=== PATIENT | female | born 1940 | race Caucasian/White ===

== ENCOUNTER → 2017-02-13 | Outpatient (CLI) | payer OTHER, MEDICARE | LOC: CIMAGING 08:04 | DX: Z12.31 Encounter for screening mammogram for malignant neoplasm of breast (principal) | CPT/HCPCS: G0202 ==

== ENCOUNTER → 2018-02-15 | Outpatient (CLI) | payer OTHER, MEDICARE | LOC: CIMAGING 09:29 | PROVIDERS: ATTEND Internal Medicine | DX: Z12.31 Encounter for screening mammogram for malignant neoplasm of breast (principal); Z80.3 Family history of malignant neoplasm of breast ==

== ENCOUNTER → 2018-02-16 | Outpatient (CLI) | payer OTHER, MEDICARE | LOC: FIMAGING 08:53 | PROVIDERS: ATTEND Internal Medicine | DX: R13.14 Dysphagia, pharyngoesophageal phase (principal); G47.33 Obstructive sleep apnea (adult) (pediatric); K21.9 Gastro-esophageal reflux disease without esophagitis; K44.9 Diaphragmatic hernia without obstruction or gangrene; J39.2 Other diseases of pharynx; K22.2 Esophageal obstruction; Z80.0 Family history of malignant neoplasm of digestive organs ==

== ENCOUNTER → 2018-04-09 | Outpatient (CLI) | payer OTHER, MEDICARE | LOC: FIMAGING 09:18 | PROVIDERS: ATTEND Orthopaedic Surgery | DX: Z01.818 Encounter for other preprocedural examination (principal); M17.11 Unilateral primary osteoarthritis, right knee; M25.461 Effusion, right knee; M16.11 Unilateral primary osteoarthritis, right hip; M19.071 Primary osteoarthritis, right ankle and foot ==

== ENCOUNTER 2018-04-30 07:15 | Inpatient (IN) | payer OTHER, MEDICARE ==
[2018-05-07] MEDS ORDERED: DEXAMETHASONE 4 MG/ML VIAL IVP ONE (05:55)
[2018-05-07] MEDS ORDERED: LR 1,000 ML IV ONE (05:55)
[2018-05-07] MEDS ORDERED: ACETAMINOPHEN 325 MG TAB PO ONE (05:55)
[2018-05-07] MEDS ORDERED: FAMOTIDINE 20 MG TAB PO ONE (05:55)
[2018-05-07] MEDS ORDERED: ceFAZolin 2 GM/DEXTROSE 100 ML IV ONE (05:55)
[2018-05-07] MEDS ORDERED: LIDOCAINE 1% 2 ML INJ ID PRN (05:55)
[2018-05-07] MEDS ORDERED: ROPIVACAINE 0.2% 80 MG, EPINEPHrine 0.2 MG, KETOROLAC TROMETHAMINE 30 MG in SYRINGE 0 ML IU ONE (06:00)
[2018-05-07] MEDS ORDERED: TRANEXAMIC ACID 3,000 MG in NS (SYRINGE) 50 ML IRR ONE (06:00)
--- NOTE | 2018-05-07 06:19 | PDHPUP ---
History & Physical Update H&P update statement: This history and physical update is based on an assessment of the patient which was completed after admission or registration (within 24 hours), but prior to the surgery/procedure. H&P update: H&P reviewed & patient examined, no change in patient's condition since H&P completed
[2018-05-07] MEDS ORDERED: VANCOMYCIN 1 GM VIAL ONE (06:38)
[2018-05-07] MEDS ORDERED: TRANEXAMIC ACID 3,000 MG/50 ML BAG IRR ONE (06:38)
[2018-05-07] MEDS ORDERED: MIDAZOLAM 2 MG/2 ML VIAL ONE (07:06)
[2018-05-07] MEDS ORDERED: PROPOFOL 200 MG/20 ML VIAL ONE ×2 (07:11→08:33)
[2018-05-07] MEDS ORDERED: MIDAZOLAM 2 MG/2 ML VIAL IVP ONE (07:14)
--- NOTE | 2018-05-07 07:14 | PDANEPAE ---
ANE Past Medical History - Cardiovascular History Hx Hypertension: No Hx Arrhythmias: Yes Hx Coronary Artery / Peripheral Vascular Disease: No Hx CHF / Valvular Disease: No Cardiovascular History Comment: Afib x1 with sleep study. - Pulmonary History Hx COPD: No Hx Asthma/Reactive Airway Disease: No Hx Recent Upper Respiratory Infection: No Hx Oxygen in Use at Home: No Hx Sleep Apnea: Yes Sleep Apnea Screening Result - Last Documented: Positive Pulmonary History Comment: sleep apnea-CPAP. - Neurologic History Hx Cerebrovascular Accident: No Hx Seizures: No Hx Dementia: No - Endocrine History Hx Diabetes: No - Renal History Hx Renal Disorders: No - Liver History Hx Hepatic Disorders: No - Neurological & Psychiatric Hx Hx Neurological and Psychiatric Disorders: No - Cancer History Hx Cancer: No - Congenital Disorder History Hx Congenital Disorders: No - GI History Hx Gastrointestinal Disorders: No Gastrointestinal History Comment: FREQUENT CONSTIPATION ALTERNATING WITH DIARRHEA - Other Health History Other Health History: Joint arthritis. - Chronic Pain History Chronic Pain: Yes (joints) - Surgical History Prior Surgeries: 2006-L knee scope. 1999-bilateral breast BXx4. 1969-GB surg. Tonsils as child. ANE Review of Systems Review of Systems: - Exercise capacity METS (RN): 4 METS ANE Patient History - Allergies Allergies/Adverse Reactions: chlorhexidine [From Hibiclens] Allergy (Verified 04/15/18 12:52) Rash hydrocodone [From Vicodin] Allergy (Verified 04/15/18 12:52) GI ISSUES meloxicam [From Mobic] Allergy (Verified 04/15/18 12:52) GI ISSUES oxycodone Allergy (Verified 04/15/18 12:52) GI ISSUES tramadol Allergy (Verified 04/15/18 12:52) GI ISSUES - Home Medications Home Medications: Aspirin [Aspirin 81mg (*)] 81 mg PO DAILY18 04/13/18 [Last Taken 04/30/18] Naproxen 500 mg PO BID 04/13/18 [Last Taken 04/25/18] [place]-3 Fatty Acids [Fish Oil 1000 mg (*)] 1,000 mg PO HS 04/13/18 [Last Taken 04/30/18] - NPO status NPO Since - Liquids (Date): 05/06/18 NPO Since - Liquids (Time): 21:00 NPO Since - Solids (Date): 05/06/18 NPO Since - Solids (Time): 19:00 - Smoking Hx Smoking Status: Never smoked - Family Anes Hx Family Hx Anesthesia Complications: NONE ANE Labs/Vital Signs - Vital Signs Blood Pressure: 117/70 Heart Rate: 58 Respiratory Rate: 16 O2 Sat (%): 98 Height: 157.48 cm Weight: 50.349 kg ANE Physical Exam - Airway Neck exam: FROM Mallampati Score: Class 1 Mouth exam: normal dental/mouth exam - Pulmonary Pulmonary: no respiratory distress - Cardiovascular Cardiovascular: regular rate and rhythym ANE Anesthesia Plan Anesthesia Plan: GA w LMA, spinal
[2018-05-07] MEDS ORDERED: diphenhydrAMINE 25 MG CAP PO PRN (08:33)
[2018-05-07] MEDS ORDERED: ONDANSETRON DISINTEGRATING 4 MG TAB PO PRN (08:33)
[2018-05-07] MEDS ORDERED: PROMETHAZINE HCL 25 MG SUPPR PR PRN (08:33)
[2018-05-07] MEDS ORDERED: ONDANSETRON 4 MG/2 ML VIAL IVP PRN ×2 (08:33→09:45)
[2018-05-07] MEDS ORDERED: METOCLOPRAMIDE 10 MG/2 ML VIAL IVP PRN (08:33)
[2018-05-07] MEDS ORDERED: PROMETHAZINE HCL 25 MG/ML INJ IVP PRN (08:33)
[2018-05-07] MEDS ORDERED: MAGNESIUM HYDROXIDE 30 ML UDCUP PO PRN (08:33)
[2018-05-07] MEDS ORDERED: BISACODYL 10 MG SUPP PR PRN (08:33)
[2018-05-07] MEDS ORDERED: TEMAZEPAM 15 MG CAP PO PRN (08:33)
[2018-05-07] MEDS ORDERED: LACTULOSE 20 GM/30 ML UDCUP PO PRN (08:33)
[2018-05-07] MEDS ORDERED: POLYETHYLENE GLYCOL 3350 17 GM PKT PO PRN (08:33)
[2018-05-07] MEDS ORDERED: DIPHENOXYLATE/ATROPINE LOMOTIL 1 TAB PO PRN (08:33)
[2018-05-07] MEDS ORDERED: ROPIVACAINE HCL 150 MG/30 ML INJ ONE (08:35)
--- NOTE | 2018-05-07 08:36 | POSTOPPROG ---
Post Op Note Date of Operation: 05/07/18 Surgeon: Roger Ellsworth Board Member: willow ellsworth Anesthesiologist: dr. andres Anesthesia: Spinal, Other (Specify) (adductor canal block) Pre-op Diagnosis: right knee OA Post-op Diagnosis: same Indication: right knee pain Procedure: R TKA robot assisted, computer arnulfo, sensor assisted Findings: severe knee OA Inf/Abcess present in the surg proc area at time of surgery?: No EBL: 50-100
[2018-05-07] MEDS ORDERED: LR 1,000 ML IV SCH (09:00)
--- NOTE | 2018-05-07 09:01 | POSTANESTH ---
Post Anesthetic Evaluation Cardiovascular Status: Normal, Stable Respiratory Status: Normal, Stable Level of Consciousness/Mental Status: Can Participate in Eval Pain Control: Adequate, Prn Tx Ordered Nausea/Vomiting Control: Adequate, Prn Tx Ordered Complications Possibly Related to Anesthesia: None Noted
[2018-05-07] MEDS ORDERED: NALOXONE HCL 0.4 MG/ML INJ IVP PRN (09:45)
[2018-05-07] MEDS ORDERED: fentaNYL 100 MCG/2 ML INJ ONE (09:55)
[2018-05-07] MEDS: fentaNYL 100 MCG/2 ML INJ IVP PRN ×2 (09:56→10:08)
[2018-05-07] MEDS: HYDROmorphONE/DILAUDID 2 MG TAB PO PRN ×3 (11:20→21:08)
[2018-05-07] MEDS: ACETAMINOPHEN 325 MG TAB PO SCH ×3 (12:01→23:36)
[2018-05-07] MEDS: CYCLOBENZAPRINE 10 MG TAB PO PRN ×2 (12:02→21:08)
[2018-05-07] MEDS: SENNOSIDES/DOCUSATE SODIUM TAB PO SCH ×2 (13:56→21:08)
--- NOTE | 2018-05-07 14:48 | ASMTCMCOM ---
CM Note CM Note Notes: Pt s/p R TKA. Pt had [facility] PT last TKA and requests again; Saloni at [facility] alerted. PT/OT evals pending. Pt has a lot of friend support local but her recently had kidney cancer surgery and is still recovering. CM will follow. Date Signed: 05/07/2018 02:47 PM Electronically Signed By:CONCEPCION Aguilera
[2018-05-07] MEDS: ceFAZolin 2 GM/DEXTROSE 100 ML IV SCH ×2 (15:54→23:36)
[2018-05-07] MEDS: FAMOTIDINE 20 MG TAB PO SCH (21:08)
[2018-05-07] MEDS: ASPIRIN 81 MG CHEWABLE TAB PO SCH (21:08)
[2018-05-08] MEDS: ACETAMINOPHEN 325 MG TAB PO SCH ×3 (06:45→18:12)
[2018-05-08] MEDS: HYDROmorphONE/DILAUDID 2 MG TAB PO PRN ×3 (06:45→18:12)
[2018-05-08] MEDS: SENNOSIDES/DOCUSATE SODIUM TAB PO SCH ×2 (08:23→20:47)
[2018-05-08] MEDS: FAMOTIDINE 20 MG TAB PO SCH ×2 (08:23→20:47)
[2018-05-08] MEDS: ASPIRIN 81 MG CHEWABLE TAB PO SCH ×2 (08:23→20:47)
[2018-05-08] MEDS: CYCLOBENZAPRINE 10 MG TAB PO PRN ×2 (09:44→20:47)
--- NOTE | 2018-05-08 10:51 | SOAPPROG ---
SOAP Progress Note Assessment/Plan: Assessment: patient is doing well POD 1 s/p R TKA pain is well controlled on oral pain meds, increasing as expected postop anemia: level expected initially postop VTE ppx: recommend 81 mg BID for 4 weeks d/c planning: d/c to home today vs tomorrow pending release from PT and OT. patient had Home health PT postop L TKA several years ago and would benefit from home health PT postop. Plan: 05/08/18 10:49 Subjective: Katalina is doing well, denies SOB, chest pain and n/V Objective: Vital Signs Temp Pulse Resp BP Pulse Ox 36.4 C 55 L 16 116/64 93 05/08/18 07:49 05/08/18 07:49 05/08/18 07:49 05/08/18 07:49 05/08/18 08:00 Laboratory Results 05/08/18 04:20 05/08/18 04:20 05/07/18 05/08/18 05/09/18 05:59 05:59 05:59 Intake Total 2150 Output Total 2900 Balance -750 RLE: incision dressing is clean and dry, NVI, +pf/df ICD10 Worksheet Patient Problems: Problems Problem Status Onset Primary localized osteoarthritis of right knee Acute Primary osteoarthritis of left knee Acute
--- NOTE | 2018-05-08 10:51 | PDFACE2FAC ---
Face to Face Encounter 1. I certify that this patient is under my care and that I, or a nurse practitioner or physician's senior court office assistant working with me, had a eulq-dg-lhvl encounter that meets the physician lkef-vs-znvn encounter requirements with this patient on 05/08/18. 2. I certify that based on my findings, the following services are medically necessary home health services: [X Nursing] [X Physical Therapy] [Speech-Language Pathology] 3. The medical condition and clinical findings that support the need for specialized skills, knowledge and judgement of the above services are: [s/p R TKA must use FWW postop, ] 4. I certify this patient is homebound* because [the patient's condition restricts their ability to leave their home except with the assistance of another individual or the aid of a supportive device.] on narcotic pain meds and must use FWW postop I certify that this patient is confined to his/her home and needs intermittent correction care, physical and/or speech therapy. This patient is under my care and I have authorized home health services. * Homebound is defined by Medicare as follows: absences from home require considerable and tacking effort and or for medical reasons or zoroastrian services or are infrequent or of short duration when for other reasons*.
--- NOTE | 2018-05-08 10:52 | PDIAF ---
- Diagnosis Diagnosis: s/p R TKA Code Status: Full Code - Medication Management Discharge Medications: Medications to Continue on Transfer [place]-3 Fatty Acids [Fish Oil 1000 mg (*)] 1,000 mg PO HS 04/13/18 [Last Taken 04/30/18] Acetaminophen [Tylenol 325mg (*)] 650 mg PO Q6HRS tab 05/08/18 [Last Taken Unknown] Aspirin [Aspirin 81mg (*)] 81 mg PO BID tab.chew 05/08/18 [Last Taken Unknown] HYDROmorphone HCL [Dilaudid 2 mg (*)] 2 - 4 mg PO Q4HRS PRN tab 05/08/18 [Last Taken Unknown] Polyethylene Glycol 3350 [Miralax 17 gm (*)] 17 gm PO DAILY PRN pkt 05/08/18 [ Last Taken Unknown] Sennosides/Docusate Sodium [Senokot-S] 1 - 2 tab PO BID tab 05/08/18 [Last Taken Unknown] celeCOXIB [Celebrex (*)] 200 mg PO DAILY cap 05/08/18 [Last Taken Unknown] Discharge Medications: Refer to the Discharge Home Medication list for PRN reason. - Orders Services needed: Home Care, Physical Therapy Home Care Face to Face: I certify that this patient was under my care and that I had the required tmxh-jf-chmm encounter meeting the encounter requirements on the discharge day. My findings support the fact that the patient is homebound as defined in Home Care Face to Face Continued: CMS Chapter 7 Medicare Benefits Manual 30.1.1 , The condition of the patient is such that there exists a normal inability to leave home and consequently, leaving home would require a considerable and taxing effort. Isolation Type: None Diet Recommendation: no restrictions on diet Diet Texture: Regular Texture Diet Additional Instructions: Joint Protocol-Knee Replacement Follow up with Dr. Guevara office as scheduled You received an adductor canal nerve block in your surgical leg. This provides pain relief for 24-36 hours after surgery. As the numbness to your anterior bentley resolves, the pain will worsen. We recommend starting narcotic pain meds, even low dose ( a pill) prior to the block wearing off. After surgery instructions: Take Aspirin 81mg by mouth twice daily for 4 weeks (helps to prevent blood clots ) Wear thigh high RUBI hose on both legs during the daytime for 2 weeks (helps to prevent blood clots and decrease swelling in the surgical leg). It is ok to remove RUBI hose at night time to give your legs a break. It is common for swelling and bruising to occur in the entire surgical leg even extending to the foot, if concerned call Dr. Ybarra office [phone] Elevate the surgical leg with the ankle above the hip several times a day. Ideally anytime you are resting throughout the day. Attempt to keep the knee straight while elevating by placing pillows under the ankle instead of the knee to elevate. This may be painful, so please do as much as tolerated. This will help you achieve full knee extension. Use a walker for 7-14 days Wear an joseph wrap on the knee for 3-4 days after surgery, then it is no longer needed Do exercises in the book 2-3 times a day Ice at least 3-5 times a day for 30 minutes each time, if not more often. We also recommend using the ice machine before falling asleep to help with pain If you have further questions that are not addressed here, please look at the information packet handed to you at the preop appointment. Most will be answered on the FAQs, after surgery instructions and incision care pages. *IF YOU HAVE A LIFE THREATENING EMERGENCY, CALL 911. FOR NON-LIFE THREATENING ISSUES, PLEASE CALL DR. GUEVARA OFFICE FIRST. A PHYSICIAN IS MERCURY CELL CLEANER 18/05. Incision/Dressing Care: You may shower tomorrow, you do not have to cover your incision dressing as it should be waterproof. Please do not immerse in water, but water running down it a shower should be ok. Keep the incision (cast) dressing clean and dry. If the incision dressing gets soiled or wet underneath, change dressing to the dressing given to you by the hospital. (cast dressing will turn black if drainage occurs) Remove incision dressing (cast one) two weeks after surgery. Leave steri strips alone. They will fall off on their own. Do not have anyone else remove the incision dressing prior to the stated recommendation (2 weeks after surgery). If there are incision concerns, contact Dr. Ybarra office. (Natalia or Dr. Condon may remove earlier if concerns arise) If incision site (cast dressing) has drainage, call Dr. Ybarra office, . Natalia and Dr. Condon may ask you to come into the office for further evaluation - Follow Up Care Current Providers and Referrals: Jose Martinez MD [Primary Care Provider] - Natalia Condon PA [Physician Binder Folder Operator] - 05/27/18 9:45 am
--- NOTE | 2018-05-08 11:49 | ASMTLACE ---
LACE Length of stay for Answers: Less than 1 day current admission Acuity / Level of Answers: No Care: Did the patient have an inpatient admission? Comorbidities - select Answers: Other Notes: arthritis, osteoporosis , o all that apply steopenia, sleep apnea # of Emergency department Answers: 0 visits in the last 6 months Score: 1 Date Signed: 05/08/2018 11:48 AM Electronically Signed By:Nissa Galan
--- NOTE | 2018-05-08 11:51 | ASMTDCNOTE ---
Case Management Discharge Discharge Order Complete? Answers: Yes Patient to Obtain Answers: Independently Medications Transportation Arranged Answers: Family/Friends Discharge Comments Notes: Pt will be receiving PT through [facility]. [facility] notified that Pt is D/Cing today. No other CM needs identified. Date Signed: 05/08/2018 11:50 AM Electronically Signed By:Nissa Galan
--- NOTE | 2018-05-08 13:24 | ASDISCHSUM ---
Discharge Information Plan Status:Home with Home Health Medically Cleared to Leave:05/09/2018 Discharge Date:05/09/2018 04:18 PM CM D/C Disposition:Home Health Service ADT D/C Disposition:Home Health Service Projected Discharge Date:05/09/2018 03:00 PM Transportation at D/C:Family Discharge Delay Reason: Follow-Up Date:05/09/2018 03:00 PM Discharge Slot:2 - 12:01 pm - 18:00 pm Final Diagnosis:R TKA Placement Information Referral Type:*Home Health Care Services Referral ID:[id number] Provider Name:[facility] Address 1:[address] [address] Address 2: City:[place] Selection Factors: State:[place] Referral Type:*Home Health Care Services Referral ID:[id number] Provider Name: Address 1: Phone Number: Address 2: Fax Number: City: Selection Factors: State: Patient Contact Information Contact Name:JAMESAHEINZE Relationship: Address:[address] City:[facility] Phone: State/Zip Code:[place] [address] Email: Financial Information Financial Class:Medicare Primary Plan Desc:MEDICARE OUTPATIENT Primary Plan Number:[id number] Secondary Plan Desc:[place]HELSEA/[employer]EDDIE SUPPLEMENT Secondary Plan Number:[id number] Assessment Information LACE LACE Length of stay for Answers: Less than 1 day current admission Acuity / Level of Answers: No Care: Did the patient have an inpatient admission? Comorbidities - select Answers: Other Notes: arthritis, osteoporosis , o all that apply steopenia, sleep apnea # of Emergency department Answers: 0 visits in the last 6 months Score: 1 Date Signed: 05/08/2018 11:48 AM Electronically Signed By:Nissa Galan [facility] CM Progress Note CM Note CM Note Notes: Pt s/p R TKA. Pt had [facility] PT last TKA and requests again; Saloni at [facility] alerted. PT/OT evals pending. Pt has a lot of friend support local but her recently had kidney cancer surgery and is still recovering. CM will follow. Date Signed: 05/07/2018 02:47 PM Electronically Signed By:CONCEPCION Aguilera Case Management Discharge Plan Note Case Management Discharge Discharge Order Complete? Answers: Yes Patient to Obtain Answers: Independently Medications Transportation Arranged Answers: Family/Friends Discharge Comments Notes: Pt will be receiving PT through [facility]. [facility] notified that Pt is D/Cing today. No other CM needs identified. Date Signed: 05/08/2018 11:50 AM Electronically Signed By:Nissa Galan [facility] CM Progress Note CM Note CM Note Notes: Spoke with BRYANNA Sosa at [facility], confirmed she has received all needed orders/paperwork. [facility] will see patient on Thursday, 05/09. Date Signed: 05/08/2018 02:08 PM Electronically Signed By:Denise Clay RN Intervention Information
--- NOTE | 2018-05-08 14:09 | ASMTCMCOM ---
CM Note CM Note Notes: Spoke with BRYANNA Sosa at [facility], confirmed she has received all needed orders/paperwork. [facility] will see patient on Thursday, 05/09. Date Signed: 05/08/2018 02:08 PM Electronically Signed By:Denise Clay RN
--- NOTE | 2018-05-08 17:02 | GOP ---
[f rep st] OPERATIVE REPORT DATE OF OPERATION: 05/07/2018 SURGEON: Jos Condon MD HEAT CURER: Natalia Condon PA-C ANESTHESIA: Spinal. PREOPERATIVE DIAGNOSIS: Right knee osteoarthritis. POSTOPERATIVE DIAGNOSIS: Right knee osteoarthritis. PROCEDURE PERFORMED: Right total knee replacement with computer navigation, robotic assist. FINDINGS: ESTIMATED BLOOD LOSS: 30 mL. INDICATIONS: The patient is a 77-year-old female with severe and progressive pain and deformity of the right knee unresponsive to conservative care. The risks and benefits of surgical intervention were explained in detail. DESCRIPTION OF PROCEDURE: The patient was brought to the operative room and placed on the table in the supine position. Spinal anesthesia was induced without difficulty. A pneumatic tourniquet was applied about the right proximal thigh, and the leg was prepped and draped in a sterile fashion. The leg paz was applied. After exsanguination by elevation the tourniquet was inflated to 250 mmHg. Incision was made anterior medial from the tibial tuberosity to a point 2 cm proximal to the superior pole of the patella. Medial parapatellar arthrotomy was carried out from the superior pole of the patella and posteriorly in line with the fibers of the Type II VMO. The medial collateral ligament was elevated and the infrapatellar fat pad was resected. The patella was everted and the articular surface was excised. A 35 mm patellar button was placed. Attention was turned first to the distal aspect of the femur. After exposure of the femur, 2 half pins were placed for fixation of the femoral array. In a similar fashion, 2 pins were placed anteromedial on the tibia for fixation of the tibial array. External land marking and registration of the hip center were performed without difficulty. Internal femoral and tibial registration were carried out without difficulty and the femoral and tibial checkpoints were placed and verified for accuracy. Attention was turned to the femur. The foot print for the size 3 femoral component was cut with the saw using the [employer] robotic system and verified for accuracy against the CT based plan. In a similar fashion, the saw was used to cut the footprint for the size 4 tibial component using the [employer] Reality system and verified for accuracy against the CT based plan. The tibial articular surface was excised without difficulty, followed by the intercondylar box cut. The knee was extended and the remnants of the medial and lateral meniscus were excised. The posterior capsule was injected with ropivacaine, epinephrine and Toradol. A size 6 tibial tray was positioned. Trial reduction was then carried out. There was excellent range of motion, alignment, and stability using the 4 x 9 mm polyethylene. Verwrenchguys mobilee Avimotosor smart trial was used to confirm joint balance and rotation. All trials were then removed. The joint was thoroughly irrigated and carefully dried. The Press-Fit components were implanted. The permanent 4 x 9 mm polyethylene was placed without difficulty. The tourniquet was deflated and all bleeders were coagulated. The wound was thoroughly irrigated and closed using interrupted sutures of 2-0 Vicryl for the joint capsule. The subcu was closed with 3-0 Vicryl and the skin with 4-0 Monocryl. Dermabond and Steri-Strips were applied followed by a compressive dressing. The patient was then moved from the operating room to the recovery room in good condition, having tolerated the procedure well. PATHOLOGY: Severe medial and patellofemoral osteoarthritis. /[id number]/MODL MTDD
[2018-05-09] MEDS: ACETAMINOPHEN 325 MG TAB PO SCH ×3 (01:01→13:37)
[2018-05-09] MEDS: HYDROmorphONE/DILAUDID 2 MG TAB PO PRN ×3 (01:01→13:26)
[2018-05-09 07:51] VITALS: BP 117/68
[2018-05-09] MEDS: ASPIRIN 81 MG CHEWABLE TAB PO SCH (08:03)
[2018-05-09] MEDS: FAMOTIDINE 20 MG TAB PO SCH (08:03)
[2018-05-09] MEDS: SENNOSIDES/DOCUSATE SODIUM TAB PO SCH (08:03)
--- NOTE | 2018-05-09 13:51 | SOAPPROG ---
SOAP Progress Note Assessment/Plan: Assessment: patient is doing well POD 2 s/p R TKA pain is well controlled on oral pain meds, increasing as expected postop anemia: level expected initially postop VTE ppx: recommend 81 mg BID for 4 weeks d/c planning: d/c to home today with home health PT Plan: 05/08/18 10:49 05/09/18 13:50 Subjective: mild pain, resting comfortably Objective: Vital Signs Temp Pulse Resp BP Pulse Ox 36.4 C 70 16 117/68 95 05/09/18 07:50 05/09/18 07:50 05/09/18 07:50 05/09/18 07:50 05/09/18 07:50 Laboratory Results 05/09/18 04:05 05/08/18 04:20 05/08/18 05/09/18 05/10/18 05:59 05:59 05:59 Intake Total 2150 2000 350 Output Total 2900 2800 900 Balance -750 -800 -550 RLE:incision dressing is clean and dry, NVI, +pf/df, ecchymosis as expected ICD10 Worksheet Patient Problems: Problems Problem Status Onset Primary localized osteoarthritis of right knee Acute Primary osteoarthritis of left knee Acute
--- NOTE | 2018-05-09 13:53 | PDIAF ---
- Diagnosis Diagnosis: s/p R TKA Code Status: Full Code - Medication Management Discharge Medications: Medications to Continue on Transfer [place]-3 Fatty Acids [Fish Oil 1000 mg (*)] 1,000 mg PO HS 04/13/18 [Last Taken 04/30/18] Acetaminophen [Tylenol 325mg (*)] 650 mg PO Q6HRS tab 05/08/18 [Last Taken Unknown] Aspirin [Aspirin 81mg (*)] 81 mg PO BID tab.chew 05/08/18 [Last Taken Unknown] HYDROmorphone HCL [Dilaudid 2 mg (*)] 2 - 4 mg PO Q4HRS PRN tab 05/08/18 [Last Taken Unknown] Polyethylene Glycol 3350 [Miralax 17 gm (*)] 17 gm PO DAILY PRN pkt 05/08/18 [ Last Taken Unknown] Sennosides/Docusate Sodium [Senokot-S] 1 - 2 tab PO BID tab 05/08/18 [Last Taken Unknown] celeCOXIB [Celebrex (*)] 200 mg PO DAILY cap 05/08/18 [Last Taken Unknown] Discharge Medications: Refer to the Discharge Home Medication list for PRN reason. - Orders Services needed: Home Care, Physical Therapy Home Care Face to Face: I certify that this patient was under my care and that I had the required [id number] encounter meeting the encounter requirements on the discharge day. My findings support the fact that the patient is homebound as defined in Home Care Face to Face Continued: CMS Chapter 7 Medicare Benefits Manual 30.1.1 , The condition of the patient is such that there exists a normal inability to leave home and consequently, leaving home would require a considerable and taxing effort. Isolation Type: None Diet Recommendation: no restrictions on diet Diet Texture: Regular Texture Diet Additional Instructions: Joint Protocol-Knee Replacement Follow up with Dr. Guevara office as scheduled You received an adductor canal nerve block in your surgical leg. This provides pain relief for 24-36 hours after surgery. As the numbness to your anterior bentley resolves, the pain will worsen. We recommend starting narcotic pain meds, even low dose ( a pill) prior to the block wearing off. After surgery instructions: Take Aspirin 81mg by mouth twice daily for 4 weeks (helps to prevent blood clots ) Wear thigh high RUBI hose on both legs during the daytime for 2 weeks (helps to prevent blood clots and decrease swelling in the surgical leg). It is ok to remove RUBI hose at night time to give your legs a break. It is common for swelling and bruising to occur in the entire surgical leg even extending to the foot, if concerned call Dr. Ybarra office [phone] Elevate the surgical leg with the ankle above the hip several times a day. Ideally anytime you are resting throughout the day. Attempt to keep the knee straight while elevating by placing pillows under the ankle instead of the knee to elevate. This may be painful, so please do as much as tolerated. This will help you achieve full knee extension. Use a walker for 7-14 days Wear an joseph wrap on the knee for 3-4 days after surgery, then it is no longer needed Do exercises in the book 2-3 times a day Ice at least 3-5 times a day for 30 minutes each time, if not more often. We also recommend using the ice machine before falling asleep to help with pain If you have further questions that are not addressed here, please look at the information packet handed to you at the preop appointment. Most will be answered on the FAQs, after surgery instructions and incision care pages. *IF YOU HAVE A LIFE THREATENING EMERGENCY, CALL 911. FOR NON-LIFE THREATENING ISSUES, PLEASE CALL DR. GUEVARA OFFICE FIRST. A PHYSICIAN IS ORCHESTRA DIRECTOR 18/05. Incision/Dressing Care: You may shower tomorrow, you do not have to cover your incision dressing as it should be waterproof. Please do not immerse in water, but water running down it a shower should be ok. Keep the incision (cast) dressing clean and dry. If the incision dressing gets soiled or wet underneath, change dressing to the dressing given to you by the hospital. (cast dressing will turn black if drainage occurs) Remove incision dressing (cast one) two weeks after surgery. Leave steri strips alone. They will fall off on their own. Do not have anyone else remove the incision dressing prior to the stated recommendation (2 weeks after surgery). If there are incision concerns, contact Dr. Ybarra office. (Natalia or Dr. Condon may remove earlier if concerns arise) If incision site (cast dressing) has drainage, call Dr. Ybarra office, . Natalia and Dr. Condon may ask you to come into the office for further evaluation - Follow Up Care Current Providers and Referrals: Jose Martinez MD [Primary Care Provider] - Natalia Condon PA [Physician Construction Tech] - 05/27/18 9:45 am
--- NOTE | 2018-05-09 13:53 | PDFACE2FAC ---
Face to Face Encounter 1. I certify that this patient is under my care and that I, or a nurse practitioner or physician's commercial escrow assistant working with me, had a [id number] encounter that meets the physician [id number] encounter requirements with this patient on 05/09/18. 2. I certify that based on my findings, the following services are medically necessary home health services: [X Nursing] [X Physical Therapy] [ Speech-Language Pathology] 3. The medical condition and clinical findings that support the need for specialized skills, knowledge and judgement of the above services are: [s/p R TKA with FWW] 4. I certify this patient is homebound* because [the patient's condition restricts their ability to leave their home except with the assistance of another individual or the aid of a supportive device.] I certify that this patient is confined to his/her home and needs intermittent mcc care, physical and/or speech therapy. This patient is under my care and I have authorized home health services. * Homebound is defined by Medicare as follows: absences from home require considerable and tacking effort and or for medical reasons or hindu services or are infrequent or of short duration when for other reasons*.
--- NOTE | 2018-05-25 07:59 | GDS ---
[f rep st] DISCHARGE SUMMARY ADMISSION DIAGNOSIS: Right knee osteoarthritis. DISCHARGE DIAGNOSIS: Right knee osteoarthritis. PROCEDURE: Right total knee arthroplasty. VTE PROPHYLAXIS: Recommend aspirin 81 mg twice daily for 4 weeks. BRIEF DESCRIPTION OF HOSPITAL STAY: Patient was admitted for an elective joint arthroplasty. The pa enoch tolerated the procedure well and has passed physical therapy. The patient was given appropriat e antibiotic prophylaxis and venous thromboembolism prophylaxis. The patient's pain was well control led on oral pain medication, patient was holding down food, and had urinated. Decision was made to d ischarge the patient. The patient was given post-operative prescriptions pre-operatively. PLAN: To follow up as scheduled in Dr. Condon's office in 3 weeks. The patient will benefit from home health services. /[id number]/MODL
== END 2018-05-09 16:18 | disposition home health service (06) | DRG 470 ==
LOC: F3N 05-07 05:49 → OBSVTOIN 05-09 12:49
PROVIDERS: ADMIT Orthopaedic Surgery; ATTEND Orthopaedic Surgery
DX: M17.11 Unilateral primary osteoarthritis, right knee (principal); M81.0 Age-related osteoporosis without current pathological fracture; G47.33 Obstructive sleep apnea (adult) (pediatric); Z96.652 Presence of left artificial knee joint
CPT/HCPCS: 97116-GP; 97161-GP; 97165-GO; G8978-GP-CK; G8979-GP-CI; G8979-GP-CJ; G8980-GP-CI; G8987-GO-CI; G8988-GO-CI; G8989-GO-CI; J0171; J0690; J1100; J1885; J2250; J2270; J2704; J2795; J3010; J3370

== ENCOUNTER → 2018-08-27 | Outpatient (CLI) | payer OTHER, MEDICARE | LOC: FIMAGING 09:54 | PROVIDERS: ATTEND Internal Medicine | DX: M47.894 Other spondylosis, thoracic region (principal); M43.9 Deforming dorsopathy, unspecified; M53.84 Other specified dorsopathies, thoracic region ==

== ENCOUNTER → 2019-03-07 | Outpatient (CLI) | payer OTHER | LOC: CIMAGING 09:39 | PROVIDERS: ATTEND Internal Medicine | DX: Z12.31 Encounter for screening mammogram for malignant neoplasm of breast (principal); Z80.3 Family history of malignant neoplasm of breast ==